=== PATIENT | female | born 2005 | race Caucasian/White ===

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

== ENCOUNTER 2023-02-21 10:19 | Outpatient (CLI) | payer BC ==
[2023-02-21 12:16] VITALS: BP 114/60; PULSE 92; RESP 17; TEMP 97.7
== END 2023-02-21 12:00 | disposition home or self-care (01) ==
LOC: FBPOP 10:19
PROVIDERS: ATTEND Obstetrics & Gynecology
DX: O26.93 Pregnancy related conditions, unspecified, third trimester (principal); Z3A.37 37 weeks gestation of pregnancy
CPT/HCPCS: 99213

== ENCOUNTER 2023-05-13 06:58 | Outpatient (CLI) | payer BC, OTHER ==
[2023-05-13 08:41] VITALS: BP 118/63; PULSE 81; RESP 18; TEMP 97.5
--- NOTE | 2023-05-13 11:45 | P.MSEPDOC ---
Presenting Problems - Arrival Data Date of Arrival on Unit: 05/13/23 Time of Arrival on Unit: 06:58 Mode of Transport: Ambulatory - Complaint OB-Reason for Admission/Chief Complaint: Rule Out SROM Comment: suspected time of rupture 0600, clear and mucousy Medical History - Information : 2 Para: 1 Term: 1 : 0 Abortions: Spontaneous or Elective: 0 Number of Living Children: 1 - Gestational Age Gestational Age by KRISHAN (wks/days): 39 Weeks and 0 Days - History Complications: Prior , Smoker Comment: maite Review of Systems - Review of Systems Constitutional: No problems Breast: No problems ENT: No problems Cardiovascular: No problems Respiratory: No problems Gastrointestinal: No problems Genitourinary: No problems Musculoskeletal: No problems Neurological: No problems Skin: No problems Vital Signs - Temperature Temperature: 97.5 F Temperature Source: Temporal Artery Scan - Pulse Right Pulse Oximetery Pulse Rate: 81 - Respirations Respiratory Rate: 18 O2 Sat by Pulse Oximetry: 98 - Blood Pressure Right Arm Blood Pressure: 118/63 Blood Pressure Mean: 81 Blood Pressure Source: Automatic Cuff Medical Screen Scoring - Cervical Exam Dilation (cm): 0 Effacement (%): 50 Station: -3 Membranes: Intact - Uterine Contractions Frequency From (mins): 4 Frequency To (mins): 11 Duration From (seconds): 40 Duration To (seconds): 60 Intensity: Mild Resting: Soft to palpation - Assessment - Baby A Baseline FHR: 125 Heart Rate - NICHD Category: Category I (Normal) NST: Reactive Physician Notification - Physician Notified Physician Notified Date: 05/13/23 Physician Notified Time: 07:45 Physician: Jono Farr New Order Received: Yes (orally hydrate and when reactive NST patient may be discharged home.) - Notification Comment Comment: amnisure negative, cervix closed. Maternal Triage Index - Maternal Triage Index Presenting for scheduled procedure w/no complaint: No - Stat/Priority 1 Stat Priority 1: No - Urgent/Priority 2 Urgent Priority 2: Yes Provider Notified: Jono Farr Provider Notified Time: 07:45 Criteria Met for Priority 2: scheduled repeat C/S concerns of SROM Disposition - Disposition OB Disposition: Discharge to home Discharge Date: 05/13/23 Discharge Time: 08:05 I agree with the RN Medical Screening Exam: Yes Physician's MSE Comment: I have neither seen nor examined the patient. Case reviewed; plan agreed upon as documented in EMR&OBIX.: Yes Diagnosis: RELATED CONDITIONS, UNSPECIFIED, THIRD TRIMESTER
== END 2023-05-13 08:05 | disposition home or self-care (01) ==
LOC: FBPOP 06:58
PROVIDERS: ATTEND Obstetrics & Gynecology
DX: O47.1 False labor at or after 37 completed weeks of gestation (principal); Z3A.39 39 weeks gestation of pregnancy
CPT/HCPCS: 59025; 99213

== ENCOUNTER 2023-05-14 08:00 | Inpatient (IN) | payer BC, OTHER ==
[2023-05-15] MEDS ORDERED: CARBOPROST TROMETHAMINE 250 MCG/ML 1 ML AMP IM PRN (09:14)
[2023-05-15] MEDS ORDERED: OXYTOCIN 10 UNIT/ML 1 ML VIAL IM PRN (09:14)
[2023-05-15] MEDS ORDERED: METHYLERGONOVINE 0.2 MG/ML 1 ML AMP IM PRN (09:14)
[2023-05-15] MEDS ORDERED: TRANEXAMIC 1,000 MG/100ML-NACL 1,000 MG in EMPTY BAG 1 BAG IV PRN (09:14)
[2023-05-15] MEDS ORDERED: miSOPROStoL 200 MCG TAB PO PRN (09:14)
[2023-05-15 09:48] LABS: Basophils % (A) 0 %; Eosinophils % (A) 0 %; HGB 10.1 gm/dL (11.4-16.0); Hypochromasia Slight; Lymphocytes # (A) 1.9 k/uL (1.0-4.8); Lymphocytes % (A) 22 %; MCH 28.8 pg (25.0-35.0); MCHC 34.7 g/dL (31.0-37.0); MCV 82.9 fL (80.0-100.0); Mean Platelet Volume 10.8; Monocytes # (A) 0.5 k/uL (0-1.0); Monocytes % (A) 6 %; Neutrophils % (A) 69 %; Platelet Count 247 k/uL (150-450); Poikilocytosis Slight; RDW 14.1 % (11.5-15.5); WBC 8.7 k/uL (4.0-11.0)
[2023-05-15] MEDS: LACTATED RINGERS 1,000 ML IV ONE (09:57)
[2023-05-15] MEDS: CITRIC ACID-SODIUM CITRATE 15 ML CUP PO ONE (11:30)
[2023-05-15] MEDS ORDERED: OXYTOCIN 30 UNITS/500 ML NS BAG IV ONE (12:13)
[2023-05-15] MEDS ORDERED: ONDANSETRON 4 MG/2 ML VIAL ONE (12:13)
[2023-05-15] MEDS ORDERED: MORPHINE SULFATE (PF) 0.3 MG/0.3 ML SYR ONE (12:13)
[2023-05-15] MEDS ORDERED: diphenhydrAMINE 50 MG/ML 1 ML VIAL ONE (12:13)
[2023-05-15] MEDS ORDERED: fentaNYL (PF) 50 MCG/ML 2 ML AMP ONE (12:13)
[2023-05-15] MEDS ORDERED: KETOROLAC 30 MG/ML 1 ML VIAL ONE (12:13)
[2023-05-15] MEDS ORDERED: PHENYLEPHRINE-0.9% NACL SYG 1,000 MCG/10 ML SYRINGE ONE (12:13)
[2023-05-15] MEDS ORDERED: diphenhydrAMINE 50 MG/ML 1 ML VIAL IVP PRN ×3 (12:55→13:19)
[2023-05-15] MEDS ORDERED: NALOXONE 0.4 MG/ML 1 ML VIAL IV PRN ×2 (12:55→13:19)
[2023-05-15] MEDS ORDERED: ONDANSETRON 4 MG/2 ML VIAL IVP PRN ×2 (12:55→13:19)
--- NOTE | 2023-05-15 13:15 | P.HPOB ---
History of Present Illness H&P Date: 05/15/23 Chief Complaint: Scheduled section Ms. Castaneda is a 17 year old at 39 weeks and 2 days gestation with EDC of 05/20/2023 by LMP consistent with 8 week ultrasound who presents for scheduled repeat section. The has been complicated by maternal anxiety and depression for which she takes Zoloft 50mg daily. The patient has also experienced housing instability throughout this . She has vaped tobacco during this and was advised to quit after the risks were reviewed with the patient. The fetus is estimated in the 33%ile for growth at 32 weeks gestation. Obstetric history: 1 FTCS, 2 SABs work-up: blood type A positive, antibody negative, rubella immune, VDRL non-reactive, HBsAg negative, HIV negative, HCV Ab negative, gonorrhea negative, chlamydia negative, 1 hour GTT within normal limits, GBS negative. Past Medical History Past Medical History: No Reported History Additional Past Medical History / Comment(s): Surgical history: Blood type A+, amylase negative, rubella immune, hepatitis B-, GBS negative, HIV nonreactive, RPR nonreactive History of Any Multi-Drug Resistant Organisms: None Reported Past Surgical History: Section Past Anesthesia/Blood Transfusion Reactions: No Reported Reaction Additional Past Anesthesia/Blood Transfusion Reaction / Comment(s): pt has no anesthesia hx Past Psychological History: Anxiety, Depression Additional Psychological History / Comment(s): ppd with last Smoking Status: Vaper Past Alcohol Use History: None Reported Additional Past Alcohol Use History / Comment(s): vapes daily, cartridge last 2- 3 weeks. Past Drug Use History: None Reported - Past Family History Mother Family Medical History: Asthma Medications and Allergies Home Medications Medication Instructions Recorded Confirmed Type Sertraline [Zoloft] 50 mg PO DAILY 04/12/21 05/15/23 History Allergies Allergy/AdvReac Type Severity Reaction Status Date / Time No Known Allergies Allergy Verified 05/15/23 09:00 Exam Vital Signs Temp Pulse Resp BP 05/15/23 09:21 97.1 F L 68 17 123/75 Intake and Output 05/14/23 05/15/23 05/15/23 22:59 06:59 14:59 Other: Weight 54.431 kg Focused physical exam is performed. This is a healthy-appearing breathing through regular contractions every 5 minutes. Abdomen is gravid and non-tender. Cervical exam is 1/thick/high. SROM is noted while the patient is sitting up for her spinal. Extremities are non-tender, non-edematous. Results Result Diagrams: 05/15/23 09:30 Abnormal Lab Results - Last 24 Hours (Table) 05/15/23 Range/Units 09:30 RBC 3.50 L (3.80-5.40) m/uL Hgb 10.1 L (11.4-16.0) gm/dL Hct 29.0 L (34.0-46.0) % Assessment and Plan Assessment: 17 year old at 39 weeks and 2 days presenting for scheduled repeat section Plan: Admit, NPO, protocol, continuous monitoring. Time with Patient: Less than 30
[2023-05-15] MEDS ORDERED: diphenhydrAMINE 25 MG CAP PO PRN (13:19)
[2023-05-15] MEDS ORDERED: METOCLOPRAMIDE 5 MG/ML 2 ML VIAL IVP PRN (13:19)
[2023-05-15] MEDS ORDERED: ZOLPIDEM 5 MG TAB PO PRN (13:19)
[2023-05-15] MEDS ORDERED: SIMETHICONE 80 MG CHEWABLE PO PRN (13:19)
[2023-05-15] MEDS ORDERED: diphenhydrAMINE 50 MG CAP PO PRN (13:19)
--- NOTE | 2023-05-15 13:19 | P.OP ---
Date of Procedure: 05/15/23 Preoperative Diagnosis: 1. Term IUP at 39 weeks 2. History of prior section 3. No desire for TOLAC 4. Spontaneous rupture of membranes on the OR table Postoperative Diagnosis: Same Procedure(s) Performed: Repeat Lower Transverse Section Implants: None Anesthesia: spinal Surgeon: La Yarbrough Front Office Java Developer #1: Jenelle Vega Estimated Blood Loss (ml): 317 IV fluids (ml): 1,000 Urine output (ml): 300 (clear yellow) Pathology: none sent Condition: stable Disposition: floor Indications for Procedure: This is a 17 year old with a history of prior section who elects for repeat section. Risks, benefits, and alternatives to discussed with the patient including risk of bleeding, infection, damage to surrounding structures including bladder/bowel/ureters, and post-operative VTE. The patient understands these risks and desires to proceed. Operative Findings: Colorless amniotic fluid. Cephalic presentation. Viable female infant with apgars of 9/10, weight 7 pounds 7 ounces. Normal uterus, bilateral fallopian tubes, and ovaries. Moderate adhesive disease in the pelvis. Description of Procedure: The patient was taken to the operating room where spinal anesthesia was found to be adequate. Two grams of Ancef were given for infection prophylaxis. She was prepared and draped in the dorsal supine position with a leftward tilt. A Pfannenstiel skin incision was made with the scalpel. The incision was carried down to the fascia with a bovie. The fascia was incised and extended laterally with Nicole scissors. The superior aspect of the fascia was grasped with Ubaldo clamps. The underlying rectus muscle was dissected off sharply with Nicole scissors. In a similar fashion, the inferior aspect of the fascia was elevated with Ubaldo clamps and the rectus muscle and pyramidalis were dissected off. Excellent hemostasis was achieved with the bovie. The rectus muscle was in the midline down to the level of the pubic symphysis. Pre- peritoneal fatty tissue was bluntly dissected to expose the peritoneum. The peritoneum was found to be free of adherent bowel and entered sharply with Nicole scissors. The peritoneal incision was extended superiorly and inferiorly to the bladder reflection with good visualization of the bladder. The bladder blade was inserted and vesicouterine peritoneum was identified. Intraabdominal survey revealed scant, clear peritoneal fluid and the thinned-out lower uterine segment. The vesicouterine peritoneum was opened with scissors and the bladder flap was developed. The bladder blade was repositioned to keep the bladder out of the operative field. The lower uterine segment was incised with a scalpel. The amniotic sac was ruptured with an Allis clamp and clear fluid was noted. The uterine incision was extended bluntly with lateral and upward traction. The fetus was in cephalic position. The head was elevated out of the pelvis with special attention paid to avoid using the uterine incision as a fulcrum. Gentle fundal pressure was applied once the head was brought into the incision. The infant was delivered with no difficulty. The mouth and nose were suctioned with a bulb. The cord was clamped and cut. Infant was noted to be spontaneously crying. The was handed off to the huc. IV oxytocin was initiated to facilitate uterine contractions. The placenta was delivered intact with manual massage of uterine fundus. The uterus was then exteriorized and the inside of the uterus was gently wiped with a lap sponge to assure complete removal of placental membranes. The uterine incision was closed with a 0- Polysorb suture in a running locked fashion. A second imbricating layer of 0- Polysorb was placed along the incision. The ovaries and tubes were found to be normal. The uterus, tubes, and ovaries were then gently returned to the abdominal cavity. The blood clots and fluid were wiped out of the abdomen and pelvis with moist laparotomy sponges. The pelvis was copiously suction irrigated.The uterine incision was reinspected and excellent hemostasis was noted. The fascial layer was closed with a 0-Vicryl suture. The subcutaneous tissue was reapproximated with 2-0 Plain Gut. The skin was closed with 4-0 Monocryl in a subcuticular fashion. The patient tolerated the procedure well. All the counts were correct times two. The patient was taken to the recovery room in a stable condition.
[2023-05-15] MEDS: NALBUPHINE 10 MG/ML (10 ML MDV) IV PRN (14:31)
[2023-05-15] MEDS: ACETAMINOPHEN TAB 500 MG TAB PO SCH (14:57)
[2023-05-15] MEDS: IBUPROFEN 600 MG TAB PO SCH (18:46)
[2023-05-15] MEDS: LACTATED RINGERS 1,000 ML IV SCH ×2 (18:50→18:51)
[2023-05-15] MEDS: SENNOSIDES-DOCUSATE SODIUM 1 EACH TAB PO SCH (22:49)
[2023-05-16] MEDS: KETOROLAC 15 MG/ML 1 ML VIAL IVP SCH (01:31)
--- NOTE | 2023-05-16 07:09 | P.PN ---
Progress Note - Text Progress Note Date: 05/16/23 Post op day#1 Adequate pain control. No complication from acute PO pain control.
[2023-05-16 07:20] LABS: Basophils % (A) 0 %; Eosinophils # (A) 0.1 k/uL (0-0.7); Eosinophils % (A) 1 %; HCT 28.1 % (34.0-46.0); HGB 9.1 gm/dL (11.4-16.0); Hypochromasia Slight; Lymphocytes # (A) 1.5 k/uL (1.0-4.8); Lymphocytes % (A) 20 %; MCH 27.3 pg (25.0-35.0); MCHC 32.2 g/dL (31.0-37.0); MCV 84.5 fL (80.0-100.0); Mean Platelet Volume 11.5; Monocytes # (A) 0.5 k/uL (0-1.0); Monocytes % (A) 6 %; Neutrophils # (A) 5.3 k/uL (1.3-7.7); Neutrophils % (A) 70 %; Platelet Count 200 k/uL (150-450); Poikilocytosis Slight; RBC 3.32 m/uL (3.80-5.40); RDW 14.2 % (11.5-15.5); WBC 7.6 k/uL (4.0-11.0)
[2023-05-16] MEDS: medroxyPROGESTERone 150 MG/ML 1ML VIAL IM ONE (08:40)
--- NOTE | 2023-05-16 08:45 | P.PNOBGPC ---
Subjective - Subjective Principal diagnosis: s/p repeat section Interval history: The patient is doing well this morning and had no acute events overnight. She has no complaints this morning. She reports minimal lochia, passing flatus, voiding without difficulty, ambulating, and eating/drinking without nausea or vomiting. She is her without difficulty. She denies chest pain, shortness of breathing, fevers, or chills overnight. She denies pain or swelling in the legs. Patient reports: Reports appetite normal, Reports voiding normally, Reports pain well controlled, Reports ambulating normally [place]: doing well, nursing well Objective - Vital Signs Latest vital signs: Vital Signs Temp Pulse Resp BP Pulse Ox 05/16/23 01:19 97.6 F 70 16 113/69 99 05/16/23 01:15 70 16 05/16/23 01:00 16 05/15/23 22:46 16 05/15/23 21:15 97.6 F 69 16 107/64 05/15/23 21:00 16 05/15/23 18:52 15 05/15/23 17:15 96.6 F L 66 15 104/67 97 05/15/23 17:00 15 05/15/23 15:56 14 99 05/15/23 15:15 71 14 122/83 100 05/15/23 15:00 62 13 112/75 98 05/15/23 14:45 96.3 F L 61 13 130/60 100 05/15/23 14:30 51 L 12 100/68 100 05/15/23 14:15 97.6 F 68 12 114/73 98 05/15/23 14:00 66 12 103/65 99 05/15/23 13:55 15 97 05/15/23 13:45 60 13 106/65 97 05/15/23 13:30 70 13 104/62 97 05/15/23 13:15 96.6 F L 79 14 110/71 98 05/15/23 12:56 12 98 05/15/23 09:21 97.1 F L 68 17 123/75 Intake and Output 05/15/23 05/16/23 05/16/23 22:59 06:59 14:59 Intake Total 1000 Output Total 490 600 Balance 510 -600 Intake: IV 1000 Output: Urine 375 600 Uretheral (Bah) 100 Output, Quantitative 115 Blood Loss Other: Voiding Method Indwelling Catheter # Voids 1 - Exam Extremities: Present: normal Abdomen: Present: normal appearance Incision: Present: normal, dry, intact Uterus: Present: normal, firm - Labs Labs: Abnormal Lab Results - Last 24 Hours (Table) 05/15/23 05/16/23 Range/Units 09:30 06:26 RBC 3.50 L 3.32 L (3.80-5.40) m/uL Hgb 10.1 L 9.1 L (11.4-16.0) gm/dL Hct 29.0 L 28.1 L (34.0-46.0) % Assessment and Plan Assessment: 17 year old now POD#1 s/p repeat section Plan: 1. Postoperative. Patient meeting all postoperative milestones appropriately. 2. Acute Blood Loss Anemia. Ferrous Sulfate PO qDay. 3. Viable female infant. Doing well at bedside, nursing well. Dispo: Anticipate discharge home tomorrow.
[2023-05-16] MEDS: SERTRALINE 50 MG TAB PO SCH (19:45)
[2023-05-17 00:57] VITALS: TEMP 98.5
--- NOTE | 2023-05-17 08:31 | P.DS ---
Providers Date of admission: 05/15/23 08:44 Expected date of discharge: 05/17/23 Attending physician: La Yarbrough MD Primary care physician: Stated None Hospital Course: 17 year old now POD#2 s/p uncomplicated scheduled repeat who desires discharge home today. The patient is doing well this morning and had no acute events overnight. She has no complaints this morning. She reports minimal lochia, passing flatus, voiding without difficulty, ambulating, and eating/drinking without nausea or vomiting. doing well at bedside. She denies chest pain, shortness of breathing, fevers, or chills overnight. She d enies pain or swelling in the legs. Postoperative restrictions are reviewed with the patient including pelvic rest for 6 weeks, no lifting heavier than 15 pounds for 6 weeks. The patient is encouraged to call the office if she experiences any heavy bleeding, foul-smelling discharge, breast complaints, or any if she has any other concerns. She will follow up in the office in 2 weeks for postoperati ve exam. The patient will go home with Motrin, Tylenol, PO iron, and stool softeners. All questions are answered. Assessment: 17 year old now POD#2 s/p repeat Plan - Discharge Summary Discharge Rx Participant: No New Discharge Prescriptions: New Acetaminophen Tab [Tylenol] 650 mg PO Q6H PRN #30 tab PRN Reason: Mild Pain (Scale 1 To 3) Ferrous Sulfate [Iron (65 MG Elemental)] 325 mg PO DAILY #30 tab polyethylene glycoL 3350 [Miralax] 17 gm PO DAILY PRN #527 gm PRN Reason: Constipation Ibuprofen [Motrin] 600 mg PO Q6HR PRN #30 tab PRN Reason: Mild Pain (Scale 1 To 3) No Action Sertraline [Zoloft] 50 mg PO DAILY Discharge Medication List Sertraline [Zoloft] 50 mg PO DAILY 04/12/21 [History] Acetaminophen Tab [Tylenol] 650 mg PO Q6H PRN #30 tab 05/17/23 [Rx] Ferrous Sulfate [Iron (65 MG Elemental)] 325 mg PO DAILY #30 tab 05/17/23 [Rx] Ibuprofen [Motrin] 600 mg PO Q6HR PRN #30 tab 05/17/23 [Rx] polyethylene glycoL 3350 [Miralax] 17 gm PO DAILY PRN #527 gm 05/17/23 [Rx] Follow up Appointment(s)/Referral(s): La Yarbrough MD [STAFF PHYSICIAN] - 2 Weeks Discharge Disposition: HOME SELF-CARE
[2023-05-17 09:27] VITALS: BP 130/80; PULSE 64; RESP 16
== END 2023-05-17 11:20 | disposition home or self-care (01) | DRG 787 ==
LOC: 4FBP 05-15 08:44
PROVIDERS: ADMIT Obstetrics & Gynecology; ATTEND Obstetrics & Gynecology
PROC: 10D00Z1 Extraction of Products of Conception, Low, Open Approach (ICD-10-PCS; principal; 2023-05-15 12:00)
DX: O34.211 Maternal care for low transverse scar from previous cesarean delivery (principal); D62 Acute posthemorrhagic anemia; O99.344 Other mental disorders complicating childbirth; F41.9 Anxiety disorder, unspecified; F32.A Depression, unspecified; O90.81 Anemia of the puerperium; O99.334 Smoking (tobacco) complicating childbirth; F17.290 Nicotine dependence, other tobacco product, uncomplicated; O34.593 Maternal care for other abnormalities of gravid uterus, third trimester; N85.8 Other specified noninflammatory disorders of uterus; Z59.819 Housing instability, housed unspecified; Z28.310 Unvaccinated for COVID-19; Z3A.39 39 weeks gestation of pregnancy; Z37.0 Single live birth; Z79.899 Other long term (current) drug therapy
CPT/HCPCS: 85025; 86850; 86900; 86901

== ENCOUNTER 2024-02-13 20:08 | Emergency (ER) | payer OTHER ==
--- NOTE | 2024-02-13 21:13 | XR ---
EXAMINATION TYPE: XR foot complete RT DATE OF EXAM: 02/13/2024 9:05 PM COMPARISON: None CLINICAL INDICATION: Female, 18 years old with history of pain; [facility] TECHNIQUE: XR foot complete RT examined in the AP, oblique, and lateral projections. FINDINGS: No evidence of any acute osseous pathology. Accessory ossicles are present. IMPRESSION: No evidence of acute fracture. [facility], , 02/13/2024 9:11 PM
--- NOTE | 2024-02-13 21:30 | ED ---
General Adult HPI - General Chief complaint: Extremity Injury, Lower Stated complaint: R foot injury Time Seen by Provider: 02/13/24 20:27 Source: patient Mode of arrival: ambulatory Limitations: no limitations - History of Present Illness Initial comments: 18-year-old female presenting with chief complaint of right foot pain. Patient was at work when she hit her foot on a bar that was on the ground. Pain to the lateral portion of the right foot. She still has full range of motion, there is a bit of swelling near the base of the fifth metacarpal. No pain to the medial portion of the foot. No discoloration. No numbness or tingling. - Related Data Home Medications Medication Instructions Recorded Confirmed Sertraline [Zoloft] 50 mg PO DAILY 04/12/21 05/15/23 Previous Rx's Medication Instructions Recorded Acetaminophen Tab [Tylenol] 650 mg PO Q6H PRN #30 tab 05/17/23 Ferrous Sulfate [Iron (65 MG 325 mg PO DAILY #30 tab 05/17/23 Elemental)] Ibuprofen [Motrin] 600 mg PO Q6HR PRN #30 tab 05/17/23 polyethylene glycoL 3350 [Miralax] 17 gm PO DAILY PRN #527 gm 05/17/23 Allergies Allergy/AdvReac Type Severity Reaction Status Date / Time No Known Allergies Allergy Verified 05/15/23 09:00 Review of Systems ROS Statement: Those systems with pertinent positive or pertinent negative responses have been documented in the HPI. ROS Other: All systems not noted in ROS Statement are negative. Past Medical History Past Medical History: No Reported History Additional Past Medical History / Comment(s): Surgical history: Blood type A+, amylase negative, rubella immune, hepatitis B-, GBS negative, HIV nonreactive, RPR nonreactive History of Any Multi-Drug Resistant Organisms: None Reported Past Surgical History: Section Past Anesthesia/Blood Transfusion Reactions: No Reported Reaction Additional Past Anesthesia/Blood Transfusion Reaction / Comment(s): pt has no anesthesia hx Past Psychological History: Anxiety, Depression Smoking Status: Vaper Past Alcohol Use History: None Reported Past Drug Use History: None Reported - Past Family History Mother Family Medical History: Asthma General Exam Limitations: no limitations General appearance: alert, in no apparent distress Head exam: Present: atraumatic, normocephalic, normal inspection Eye exam: Present: normal appearance, EOMI Neck exam: Present: normal inspection. Absent: meningismus Respiratory exam: Absent: respiratory distress Cardiovascular Exam: Present: regular rate Right Foot/Toe exam: Present: full ROM, tenderness, swelling, tenderness at base of 5th metatarsal Neurovascular tendon exam: Present: no vascular compromise Neurological exam: Present: alert, oriented X3 Psychiatric exam: Present: normal affect, normal mood Skin exam: Present: warm, dry, normal color Course Vital Signs 02/13/24 20:20 Temperature 98.4 F Pulse Rate 99 Respiratory 20 Rate Blood Pressure 127/68 O2 Sat by Pulse 98 Oximetry Medical Decision Making - Medical Decision Making Was pt. sent in by a medical professional or institution (, PA, LIQUOR CLERK, urgent care, hospital, or skilled nursing...) When possible be specific @ -No Did you speak to anyone other than the patient for history (EMS, parent, family, police, friend...)? What history was obtained from this source @ -No Did you review nursing and triage notes (agree or disagree)? Why? @ -I reviewed and agree with nursing and triage notes Were old charts reviewed (outside hosp., previous admission, EMS record, old EKG, old radiological studies, urgent care reports/EKG's, skilled nursing records)? Report findings @ -No old charts were reviewed Differential Diagnosis (chest pain, altered mental status, abdominal pain women, abdominal pain men, vaginal bleeding, weakness, fever, dyspnea, syncope, headache, dizziness, GI bleed, back pain, seizure, CVA, palpatations, mental health, musculoskeletal)? @ -Differential Musculoskeletal Muscular strain, contusion, ligament sprain, fracture, arthritis, septic arthritis, bursitis, cellulitis, muscle spasm, nerve compression, DVT, arterial occlusion, herpes zoster, electrolyte abnormality, tumor.... This is not meant to be in all inclusive list EKG interpreted by me (3pts min.). @ -As above X-rays interpreted by me (1pt min.). @ -X-ray negative for fracture or dislocation on the right foot CT interpreted by me (1pt min.). @ -None done U/S interpreted by me (1pt. min.). @ -None done What testing was considered but not performed or refused? (CT, X-rays, U/S, labs)? Why? @ -None What meds were considered but not given or refused? Why? @ -None Did you discuss the management of the patient with other professionals (professionals i.e. Dr., PA, LIQUOR CLERK, lab, RT, psych nurse, community mental health social worker, marine pilot, teacher, bank secrecy act officer, continuous pillowcase cutter)? Give summary @ -No Was smoking cessation discussed for >3mins.? @ -No Was critical care preformed (if so, how long)? @ -No Were there social determinants of health that impacted care today? How? (Homelessness, low income, unemployed, alcoholism, drug addiction, transportation, low edu. Level, literacy, decrease access to med. care, intermediate, rehab)? @ -No Was there de-escalation of care discussed even if they declined (Discuss DNR or withdrawal of care, Hospice)? DNR status @ -No What co-morbidities impacted this encounter? (DM, HTN, Smoking, COPD, CAD, Cancer, CVA, ARF, Chemo, Hep., AIDS, mental health diagnosis, sleep apnea, morbid obesity)? @ -None Was patient admitted / discharged? Hospital course, mention meds given and route, prescriptions, significant lab abnormalities, going to OR and other pertinent info. @ -18-year-old female presenting for evaluation after hitting her foot on the bar at work today. Pain over the base of the fifth metatarsal. Neurovascularly intact. X-ray negative for fracture or dislocation. Patient is educated on today's findings and supportive management at home. Discharged. Follow-up with PCP. Report back to ER with any new or worsening symptoms. Discussed return parameters and answered all questions. Patient conveyed verbal understanding and agreed to the plan. I discussed this case in detail with my attending Dr. White Undiagnosed new problem with uncertain prognosis? @ -No Drug Therapy requiring intensive monitoring for toxicity (Heparin, Nitro, Insulin, Cardizem)? @ -No Were any procedures done? @ -No Diagnosis/symptom? @ -Foot contusion Acute, or Chronic, or Acute on Chronic? @ -Acute Uncomplicated (without systemic symptoms) or Complicated (systemic symptoms)? @ -Uncomplicated Side effects of treatment? @ -No Exacerbation, Progression, or Severe Exacerbation? @ -No Poses a threat to life or bodily function? How? (Chest pain, [place], [place], pneumonia, PE, COPD, DKA, ARF, appy, cholecystitis, CVA, Diverticulitis, Homicidal, Suicidal, threat to staff... and all critical care pts) @ -No Disposition Clinical Impression: Foot contusion Disposition: HOME SELF-CARE Condition: Good Instructions (If sedation given, give patient instructions): Foot Contusion (ED) Additional Instructions: Follow-up with PCP. Report back to ER with any new or worsening symptoms. Take Motrin and Tylenol as needed for pain control. Rest, ice, compress, elevate the foot. Is patient prescribed a controlled substance at d/c from ED?: No Referrals: None,Stated [Primary Care Provider] - 1-2 days Jorden Stevens MD [STAFF PHYSICIAN] - 1-2 days Time of Disposition: 21:29
[2024-02-13 21:35] VITALS: BP 120/79; PULSE 89; RESP 18; TEMP 97.7
== END 2024-02-13 21:37 | disposition home or self-care (01) ==
LOC: EC 20:08
DX: S90.31XA Contusion of right foot, initial encounter (principal); F17.290 Nicotine dependence, other tobacco product, uncomplicated; W22.8XXA Striking against or struck by other objects, initial encounter
CPT/HCPCS: 99283

== ENCOUNTER → 2024-02-18 | Outpatient (CLI) | payer OTHER ==
--- NOTE | 2024-02-18 13:26 | XR ---
EXAMINATION TYPE: XR ankle complete RT DATE OF EXAM: 02/18/2024 COMPARISON: NONE CLINICAL INDICATION: Female, 18 years old with history of S90.01XA; TECHNIQUE: 3 views FINDINGS: Ankle mortise is congruent with preservation of the distal tibiofibular overlap. Talar dome is intact . No acute fracture, subluxation or dislocation. Small bipartite os peroneum. IMPRESSION: No acute osseous abnormality seen. [facility], , 02/18/2024 1:24 PM
== END | disposition home or self-care (01) ==
LOC: RADXRMAIN 12:55
PROVIDERS: ATTEND Emergency Medicine
DX: S90.01XA Contusion of right ankle, initial encounter (principal)

== ENCOUNTER 2024-05-11 08:18 | Emergency (ER) | payer OTHER ==
[2024-05-11 08:23] VITALS: TEMP 97.8
--- NOTE | 2024-05-11 08:40 | ED ---
Back Pain HPI - General Chief Complaint: Back Pain/Injury Stated Complaint: back pain Time Seen by Provider: 05/11/24 08:38 Source: patient, RN notes reviewed Limitations: no limitations - History of Present Illness Initial Comments: Patient is a 18-year-old female presented to the ER for evaluation of back pain. Patient states for the past 3 weeks she has been having a sharp bilateral lower back/flank pain. She states she was going to press at work when pain started. She states this has been progressively worsening over the past 3 weeks. She states pain is now traveling down both of her legs. She denies any weakness fevers, chills, bowel or bladder incontinence, saddle paresthesias, urinary complaints or abdominal pain. Patient has been taking [id number] ibu profen and Tylenol which has not improved pain. Pain worse with standing. She was seen by PCP on Sunday and prescribed steroids and muscle relaxers which have not been helping. Patient has no significant past medical history. No other complaints at this time. - Related Data Home Medications Medication Instructions Recorded Confirmed Sertraline [Zoloft] 50 mg PO DAILY 04/12/21 05/15/23 Previous Rx's Medication Instructions Recorded Acetaminophen Tab [Tylenol] 650 mg PO Q6H PRN #30 tab 05/17/23 Ferrous Sulfate [Iron (65 MG 325 mg PO DAILY #30 tab 05/17/23 Elemental)] Ibuprofen [Motrin] 600 mg PO Q6HR PRN #30 tab 05/17/23 polyethylene glycoL 3350 [Miralax] 17 gm PO DAILY PRN #527 gm 05/17/23 Allergies Allergy/AdvReac Type Severity Reaction Status Date / Time No Known Allergies Allergy Verified 05/15/23 09:00 Review of Systems ROS Statement: Those systems with pertinent positive or pertinent negative responses have been documented in the HPI. ROS Other: All systems not noted in ROS Statement are negative. Past Medical History Past Medical History: No Reported History Additional Past Medical History / Comment(s): Surgical history: Blood type A+, amylase negative, rubella immune, hepatitis B-, GBS negative, HIV nonreactive, RPR nonreactive History of Any Multi-Drug Resistant Organisms: None Reported Past Surgical History: Section Past Anesthesia/Blood Transfusion Reactions: No Reported Reaction Additional Past Anesthesia/Blood Transfusion Reaction / Comment(s): pt has no anesthesia hx Past Psychological History: Anxiety, Depression Smoking Status: Vaper Past Alcohol Use History: None Reported Past Drug Use History: None Reported - Past Family History Mother Family Medical History: Asthma General Exam Limitations: no limitations General appearance: alert, in no apparent distress Neck exam: Present: normal inspection. Absent: tenderness, meningismus, lymphadenopathy Respiratory exam: Present: normal lung sounds bilaterally. Absent: respiratory distress, wheezes, rales, rhonchi, stridor Cardiovascular Exam: Present: regular rate, normal rhythm, normal heart sounds. Absent: systolic murmur, diastolic murmur, rubs, gallop, clicks GI/Abdominal exam: Present: soft, normal bowel sounds. Absent: distended, tenderness, guarding, rebound, rigid Extremities exam: Present: normal inspection, full ROM, normal capillary refill (2+ bilateral DP pulse). Absent: tenderness, pedal edema, joint swelling, calf tenderness Back exam: Present: normal inspection, tenderness (Lumbar spine) Neurological exam: Present: alert, oriented X3, CN II-XII intact Skin exam: Present: warm, dry, intact, normal color. Absent: rash Course Vital Signs 05/11/24 05/11/24 08:21 09:36 Temperature 97.8 F Pulse Rate 102 H 100 Respiratory 20 16 Rate Blood Pressure 114/83 110/70 O2 Sat by Pulse 99 98 Oximetry Medical Decision Making - Medical Decision Making Was pt. sent in by a medical professional or institution (LAWRENCE Garcia, COMMUNICATIONS DEPARTMENT CHAIR, urgent care, hospital, or senior living...) When possible be specific @ -No Did you speak to anyone other than the patient for history (EMS, parent, family, police, friend...)? What history was obtained from this source @ -No Did you review nursing and triage notes (agree or disagree)? Why? @ -I reviewed and agree with nursing and triage notes Were old charts reviewed (outside hosp., previous admission, EMS record, old EKG, old radiological studies, urgent care reports/EKG's, senior living records)? Report findings @ -No old charts were reviewed Differential Diagnosis (chest pain, altered mental status, abdominal pain women, abdominal pain men, vaginal bleeding, weakness, fever, dyspnea, syncope, headache, dizziness, GI bleed, back pain, seizure, CVA, palpatations, mental health, musculoskeletal)? @ -Differential Back Pain:Strain, zoster, cauda equina syndrome, epidural abscess, vertebral osteomyelitis, discitis, fracture, subluxation, disc herniation, DJD, spinal stenosis, dissection, AAA, pancreatitis, peptic ulcer disease, pyelonephritis, kidney stone, this is not meant to be an all-inclusive list. EKG interpreted by me (3pts min.). @ -None done X-rays interpreted by me (1pt min.). @ -Lumbar spine x-rays interpreted by me negative for acute fractures. CT interpreted by me (1pt min.). @ -None done U/S interpreted by me (1pt. min.). @ -None done What testing was considered but not performed or refused? (CT, X-rays, U/S, labs)? Why? @ -None What meds were considered but not given or refused? Why? @ -None Did you discuss the management of the patient with other professionals (professionals i.e. , PA, COMMUNICATIONS DEPARTMENT CHAIR, lab, RT, psych nurse, bilingual social worker, checker dump grounds, teacher, community service officer, counter caser)? Give summary @ -No Was smoking cessation discussed for >3mins.? @ -No Was critical care preformed (if so, how long)? @ -No Were there social determinants of health that impacted care today? How? (Homelessness, low income, unemployed, alcoholism, drug addiction, transportation, low edu. Level, literacy, decrease access to med. care, correction, rehab)? @ -No Was there de-escalation of care discussed even if they declined (Discuss DNR or withdrawal of care, Hospice)? DNR status @ -No What co-morbidities impacted this encounter? (DM, HTN, Smoking, COPD, CAD, Cancer, CVA, ARF, Chemo, Hep., AIDS, mental health diagnosis, sleep apnea, morbid obesity)? @ -None Was patient admitted / discharged? Hospital course, mention meds given and route, prescriptions, significant lab abnormalities, going to OR and other pertinent info. @ -Discharge. 18-year-old female presented to ER for evaluation of back pain x 3 weeks. Upon rooming, history and physical exam completed. Vitals within acceptable limits. Patient in no signs of acute distress. No red flag back pain symptoms indicate of cauda equina syndrome. Patient has full active range of motion and is neurovascularly intact. No overlying skin changes. Urine analysis obtained unremarkable. hCG negative. X-rays obtained negative. Patient given ibuprofen and lidocaine patch for pain control. I advised her to follow-up closely with PCP and continue taking steroids and muscle relaxer as prescribed by primary. Strict return parameters discussed. Patient discharged in stable condition. Patient verbally expressed understanding agree with care plan. Case discussed with ED attending, Dr. Gong. Undiagnosed new problem with uncertain prognosis? @ -No Drug Therapy requiring intensive monitoring for toxicity (Heparin, Nitro, Insulin, Cardizem)? @ -No Were any procedures done? @ -No Diagnosis/symptom? @ -Back pain Acute, or Chronic, or Acute on Chronic? @ -Acute Uncomplicated (without systemic symptoms) or Complicated (systemic symptoms)? @ -Uncomplicated Side effects of treatment? @ -No Exacerbation, Progression, or Severe Exacerbation? @ -No Poses a threat to life or bodily function? How? (Chest pain, USA, SC, pneumonia, PE, COPD, DKA, ARF, appy, cholecystitis, CVA, Diverticulitis, Homicidal, Suicidal, threat to staff... and all critical care pts) @ -No - Lab Data Lab Results 05/11/24 05/11/24 Range/Units 08:39 08:39 Urine Color Yellow Urine Appearance Clear (Clear) Urine pH 6.5 (5.0-8.0) Ur Specific Dowell 1.031 (1.001-1.035) Urine Protein Trace H (Negative) Urine Glucose (UA) Negative (Negative) Urine Ketones Negative (Negative) Urine Blood Negative (Negative) Urine Nitrite Negative (Negative) Urine Bilirubin Negative (Negative) Urine Urobilinogen <2.0 (<2.0) mg/dL Ur Leukocyte Esterase Negative (Negative) Urine HCG, Qual Not Detected (Not Detectd) - Radiology Data Radiology results: report reviewed, image reviewed Disposition Clinical Impression: Back pain Disposition: HOME SELF-CARE Condition: Stable Instructions (If sedation given, give patient instructions): Acute Low Back Pain (ED) Additional Instructions: Follow-up with PCP. Return to the ER for any new or worsening symptoms. Is patient prescribed a controlled substance at d/c from ED?: No Referrals: Bobby Owen MD [Primary Care Provider] - 1-2 days Time of Disposition: 09:34
[2024-05-11 08:55] LABS: Appearance,Urine Clear (Clear); Bilirubin,Urine Negative (Negative); Blood,Urine Negative (Negative); Color,Urine Yellow; Glucose,Urine (UA) Negative (Negative); Ketones,Urine Negative (Negative); Leukocyte Esterase,Urine Negative (Negative); Nitrite,Urine Negative (Negative); PH, Urine 6.5 (5.0-8.0); Protein,Urine Trace (Negative); Specific Gravity,Urine 1.031 (1.001-1.035); Urobilinogen,Urine <2.0 mg/dL (<2.0)
[2024-05-11] MEDS: LIDOCAINE 4% PATCH TOPICAL ONE (08:55)
[2024-05-11] MEDS: IBUPROFEN 600 MG TAB PO STA (08:56)
--- NOTE | 2024-05-11 09:03 | XR ---
EXAMINATION TYPE: XR lumbar spine 2 or 3V DATE OF EXAM: 05/11/2024 8:54 AM COMPARISON: None. CLINICAL INDICATION: Female, 18 years old with history of back pain, pain TECHNIQUE: 3 view(s) obtained. FINDINGS: There are 5 lumbar-type vertebral bodies. Pedicles are intact. Disc heights are preserved. Vertebral body heights are preserved. Alignment is normal. IMPRESSION: 1. Unremarkable three-view lumbar spine [facility], , 05/11/2024 9:01 AM
[2024-05-11 09:38] VITALS: BP 110/70; PULSE 100; RESP 16
== END 2024-05-11 09:37 | disposition home or self-care (01) ==
LOC: EC 08:18
DX: M54.50 Low back pain, unspecified (principal); F17.290 Nicotine dependence, other tobacco product, uncomplicated
CPT/HCPCS: 72100; 81003; 81025; 99284